=== PATIENT | female | born 1985 | race Hispanic/Latino ===

== ENCOUNTER 2024-06-17 18:43 | Emergency (ER) | payer SELFPAY ==
[2024-06-17 18:47] VITALS: BP 159/100
[2024-06-17 19:18] LABS: COVID-19 Antigen Negative (Negative)
== END 2024-06-17 20:49 ==
LOC: EMR 18:43
PROVIDERS: Emergency Medicine
DX: R05.9 Cough, unspecified (principal); R50.9 Fever, unspecified; Z11.52 Encounter for screening for COVID-19; R09.89 Other specified symptoms and signs involving the circulatory and respiratory systems; Z53.21 Procedure and treatment not carried out due to patient leaving prior to being seen by health care provider
CPT/HCPCS: 99281; 87502; 87811